=== PATIENT | male | born 2000 | race Caucasian/White ===

== ENCOUNTER 2022-10-03 17:00 | Emergency (ER) | payer SELFPAY | END 2022-10-03 23:01 | disposition home or self-care (01) | LOC: MW.ED 17:00 | DX: N50.811 Right testicular pain (principal) | CPT/HCPCS: 76870; 76870-26; 81001; 93976; 93976-26; 99284 ==

== ENCOUNTER 2022-10-27 17:39 | Emergency (ER) | payer MEDICAID | END 2022-10-27 22:12 | disposition home or self-care (01) | LOC: MW.ED 17:39 | DX: I86.1 Scrotal varices (principal) | CPT/HCPCS: 74176; 74176-26; 76870; 76870-26; 81001; 93976; 93976-26; 99284 ==